=== PATIENT | female | born 2000 | race Caucasian/White ===

== ENCOUNTER 2020-12-20 22:59 | Emergency (ER) | payer BC, OTHER ==
[2020-12-20 23:07] VITALS: TEMP 98.8
[2020-12-20] MEDS ORDERED: SODIUM CHLORIDE 0.9% 1,000 ML IV STA (23:17)
--- NOTE | 2020-12-20 23:28 | ED ---
Seizure HPI - General Chief Complaint: Seizure Stated Complaint: Possible seizure Time Seen by Provider: 12/20/20 23:10 Source: patient, family, RN notes reviewed Mode of arrival: ambulatory Limitations: no limitations - History of Present Illness Initial Comments: Patient is a 20-year-old female that presents to emergency department after stating that she fainted while sitting in her car. She did note that she was smoking marijuana in her car at the time. She noted that she got a sharp left- sided abdominal pain that caused her to have sweats. She noted that she took her head back and fainted for a few seconds. She denied any postictal state. Boyfriend was concerned and brought her to emergency room to get evaluated. She was in no apparent distress or pain while sitting up in bed during the exam interview. She denied any pain or discomfort. She denied any nausea vomiting diarrhea constipation fever fatigue chills headache chest pain short of breath - Related Data Home Medications Medication Instructions Recorded Confirmed Escitalopram [Lexapro] 20 mg PO HS 12/21/20 12/21/20 Estarylla 0.25-35 1 tab PO HS 12/21/20 12/21/20 Pantoprazole [Protonix] 40 mg PO DAILY PRN 12/21/20 12/21/20 Allergies Allergy/AdvReac Type Severity Reaction Status Date / Time No Known Allergies Allergy Verified 12/21/20 00:22 Review of Systems ROS Statement: Those systems with pertinent positive or pertinent negative responses have been documented in the HPI. ROS Other: All systems not noted in ROS Statement are negative. Past Medical History Past Medical History: No Reported History History of Any Multi-Drug Resistant Organisms: None Reported Past Surgical History: No Surgical Hx Reported Past Psychological History: No Psychological Hx Reported Smoking Status: Never smoker Past Alcohol Use History: None Reported Past Drug Use History: Marijuana General Exam Limitations: no limitations General appearance: alert, in no apparent distress, obese Head exam: Present: atraumatic, normocephalic, normal inspection Eye exam: Present: normal appearance, PERRL, EOMI. Absent: scleral icterus, conjunctival injection, periorbital swelling Neck exam: Present: normal inspection Respiratory exam: Present: normal lung sounds bilaterally. Absent: respiratory distress, wheezes, rales, rhonchi, stridor Cardiovascular Exam: Present: regular rate, normal rhythm, normal heart sounds. Absent: systolic murmur, diastolic murmur, rubs, gallop, clicks GI/Abdominal exam: Present: soft, normal bowel sounds. Absent: distended, tenderness, guarding, rebound, rigid Extremities exam: Present: normal inspection, full ROM, normal capillary refill. Absent: tenderness, pedal edema, joint swelling, calf tenderness Neurological exam: Present: alert, oriented X3, CN II-XII intact Psychiatric exam: Present: normal affect, normal mood Skin exam: Present: warm, dry, intact, normal color. Absent: rash Course Vital Signs 12/20/20 23:01 Temperature 98.8 F Pulse Rate 105 H Respiratory 18 Rate Blood Pressure 124/82 O2 Sat by Pulse 97 Oximetry Medical Decision Making - Medical Decision Making 20-year-old female that fainted while sitting her car after smoking marijuana. EKG, labs, 1 L normal saline ordered. Patient declined the need for any pain medication or nausea medication this time. Vital signs stable, patient is tachycardic at 105 bpm Labs unremarkable, CT and chest x-ray showed no acute processes. Case discussed with Dr. Rod, patient discharge home with follow-up to primary care and seizure specialist. - Lab Data Result diagrams: 12/20/20 23:33 12/20/20 23:33 Lab Results 12/20/20 12/20/20 12/20/20 Range/Units 23:33 23:33 23:33 WBC 10.5 (3.8-10.6) k/uL RBC 4.51 (3.80-5.40) m/uL Hgb 14.2 (11.4-16.0) gm/dL Hct 40.9 (34.0-46.0) % MCV 90.8 (80.0-100.0) fL MCH 31.4 (25.0-35.0) pg MCHC 34.6 (31.0-37.0) g/dL RDW 12.4 (11.5-15.5) % Plt Count 295 (150-450) k/uL MPV 7.3 Neutrophils % 49 % Lymphocytes % 42 % Monocytes % 5 % Eosinophils % 3 % Basophils % 0 % Neutrophils # 5.1 (1.3-7.7) k/uL Lymphocytes # 4.4 (1.0-4.8) k/uL Monocytes # 0.5 (0-1.0) k/uL Eosinophils # 0.3 (0-0.7) k/uL Basophils # 0.0 (0-0.2) k/uL Sodium (137-145) mmol/L Potassium (3.5-5.1) mmol/L Chloride (98-107) mmol/L Carbon Dioxide (22-30) mmol/L Anion Gap mmol/L BUN (7-17) mg/dL Creatinine (0.52-1.04) mg/dL Est GFR (CKD-EPI)AfAm (>60 ml/min/1.73 sqM) Est GFR (CKD-EPI)NonAf (>60 ml/min/1.73 sqM) Glucose (74-99) mg/dL Calcium (8.4-10.2) mg/dL Magnesium (1.6-2.3) mg/dL Total Bilirubin (0.2-1.3) mg/dL AST (14-36) U/L ALT (4-34) U/L Alkaline Phosphatase (38-126) U/L Creatine Kinase (30-135) U/L Total Protein (6.3-8.2) g/dL Albumin (3.5-5.0) g/dL Urine Color Yellow Urine Appearance Cloudy H (Clear) Urine pH 6.0 (5.0-8.0) Ur Specific [place] 1.018 (1.001-1.035) Urine Protein Negative (Negative) Urine Glucose (UA) Negative (Negative) Urine Ketones Negative (Negative) Urine Blood Negative (Negative) Urine Nitrite Negative (Negative) Urine Bilirubin Negative (Negative) Urine Urobilinogen <2.0 (<2.0) mg/dL Ur Leukocyte Esterase Negative (Negative) Urine RBC 1 (0-5) /hpf Urine WBC 1 (0-5) /hpf Ur Squamous Epith Cells 4 (0-4) /hpf Urine Bacteria Occasional H (None) /hpf Urine Mucus Rare H (None) /hpf Urine HCG, Qual Not Detected (Not Detectd) 12/20/20 12/20/20 Range/Units 23:33 23:33 WBC (3.8-10.6) k/uL RBC (3.80-5.40) m/uL Hgb (11.4-16.0) gm/dL Hct (34.0-46.0) % MCV (80.0-100.0) fL MCH (25.0-35.0) pg MCHC (31.0-37.0) g/dL RDW (11.5-15.5) % Plt Count (150-450) k/uL MPV Neutrophils % % Lymphocytes % % Monocytes % % Eosinophils % % Basophils % % Neutrophils # (1.3-7.7) k/uL Lymphocytes # (1.0-4.8) k/uL Monocytes # (0-1.0) k/uL Eosinophils # (0-0.7) k/uL Basophils # (0-0.2) k/uL Sodium 138 (137-145) mmol/L Potassium 4.1 (3.5-5.1) mmol/L Chloride 104 (98-107) mmol/L Carbon Dioxide 26 (22-30) mmol/L Anion Gap 8 mmol/L BUN 10 (7-17) mg/dL Creatinine 0.65 (0.52-1.04) mg/dL Est GFR (CKD-EPI)AfAm >90 (>60 ml/min/1.73 sqM) Est GFR (CKD-EPI)NonAf >90 (>60 ml/min/1.73 sqM) Glucose 95 (74-99) mg/dL Calcium 9.5 (8.4-10.2) mg/dL Magnesium 2.0 (1.6-2.3) mg/dL Total Bilirubin 0.2 (0.2-1.3) mg/dL AST 33 (14-36) U/L ALT 44 H (4-34) U/L Alkaline Phosphatase 63 (38-126) U/L Creatine Kinase 241 H (30-135) U/L Total Protein 7.4 (6.3-8.2) g/dL Albumin 4.6 (3.5-5.0) g/dL Urine Color Urine Appearance (Clear) Urine pH (5.0-8.0) Ur Specific [place] (1.001-1.035) Urine Protein (Negative) Urine Glucose (UA) (Negative) Urine Ketones (Negative) Urine Blood (Negative) Urine Nitrite (Negative) Urine Bilirubin (Negative) Urine Urobilinogen (<2.0) mg/dL Ur Leukocyte Esterase (Negative) Urine RBC (0-5) /hpf Urine WBC (0-5) /hpf Ur Squamous Epith Cells (0-4) /hpf Urine Bacteria (None) /hpf Urine Mucus (None) /hpf Urine HCG, Qual (Not Detectd) - EKG Data -: EKG Interpreted by Me EKG shows normal: sinus rhythm Rate: normal EKG Comments: Ventricular rate 76 bpm, IL interval 194 ms, QRS duration 96 ms, QT/QTC 392/441 ms, PRT axes 57/84/49. Normal sinus rhythm, normal ECG. - Radiology Data Radiology results: report reviewed, image reviewed CT of the brain: No acute hemorrhage, hydrocephalus, or mass effect. Chest x-ray: No acute cardiopulmonary process. Disposition Clinical Impression: New onset seizure, Fainting Disposition: HOME SELF-CARE Instructions (If sedation given, give patient instructions): Seizure/Epilepsy Discharge Instructions & Follow-Up Additional Instructions: Please return to the Emergency Department if symptoms worsen or any other concerns. Avoid marijuana use as it could cause complications. Follow-up primary care in 3-5 days. Follow-up with seizure specialist at her convenience. Is patient prescribed a controlled substance at d/c from ED?: No Referrals: Ethel Zamudio DO [Primary Care Provider] - 1-2 days Time of Disposition: 01:07
[2020-12-20 23:42] LABS: Basophils % (A) 0 %; Eosinophils # (A) 0.3 k/uL (0-0.7); Eosinophils % (A) 3 %; HCT 40.9 % (34.0-46.0); HGB 14.2 gm/dL (11.4-16.0); Lymphocytes # (A) 4.4 k/uL (1.0-4.8); Lymphocytes % (A) 42 %; MCH 31.4 pg (25.0-35.0); MCHC 34.6 g/dL (31.0-37.0); MCV 90.8 fL (80.0-100.0); Mean Platelet Volume 7.3; Monocytes # (A) 0.5 k/uL (0-1.0); Monocytes % (A) 5 %; Neutrophils # (A) 5.1 k/uL (1.3-7.7); Neutrophils % (A) 49 %; Platelet Count 295 k/uL (150-450); RBC 4.51 m/uL (3.80-5.40); RDW 12.4 % (11.5-15.5); WBC 10.5 k/uL (3.8-10.6)
[2020-12-20 23:51] LABS: ALT 44 U/L (4-34); AST 33 U/L (14-36); African American GFR (CKD) >90 (>60 ml/min/1.73 sqM); Albumin 4.6 g/dL (3.5-5.0); Alkaline Phosphatase 63 U/L (38-126); Anion Gap 8 mmol/L; Blood Urea Nitrogen 10 mg/dL (7-17); Calcium 9.5 mg/dL (8.4-10.2); Carbon Dioxide 26 mmol/L (22-30); Chloride 104 mmol/L (98-107); Creatine Kinase 241 U/L (30-135); Glucose 95 mg/dL (74-99); Non-African American GFR(CKD) >90 (>60 ml/min/1.73 sqM); Potassium 4.1 mmol/L (3.5-5.1); Sodium 138 mmol/L (137-145); Total Bilirubin 0.2 mg/dL (0.2-1.3); Total Protein 7.4 g/dL (6.3-8.2)
[2020-12-21 00:05] LABS: Appearance,Urine Cloudy (Clear); Bacteria,Urine Occasional /hpf; Bilirubin,Urine Negative (Negative); Blood,Urine Negative (Negative); Color,Urine Yellow; Glucose,Urine (UA) Negative (Negative); Ketones,Urine Negative (Negative); Leukocyte Esterase,Urine Negative (Negative); Mucus,Urine Rare /hpf; Nitrite,Urine Negative (Negative); Protein,Urine Negative (Negative); RBC,Urine 1 /hpf (0-5); Specific Gravity,Urine 1.018 (1.001-1.035); Squamous Epithelial Cell,Urine 4 /hpf (0-4); Urobilinogen,Urine <2.0 mg/dL (<2.0); WBC,Urine 1 /hpf (0-5)
--- NOTE | 2020-12-21 00:52 | CT ---
EXAM: CT Head Without Intravenous Contrast CLINICAL HISTORY: ITS.REASON CT Reason: Fainting episode TECHNIQUE: Axial computed tomography images of the head/brain without intravenous contrast. CTDI is 49.1 mGy and DLP is 1121.4 mGy-cm. This CT exam was performed using one or more of the following dose reduction techniques: automated exposure control, adjustment of the mA and/or kV according to patient size, and/or use of iterative reconstruction technique. COMPARISON: No relevant prior studies available. FINDINGS: Brain: No hemorrhage or mass effect. Ventricles: No hydrocephalus. Bones/joints: Unremarkable. Soft tissues: Unremarkable. Sinuses: Unremarkable. Mastoid air cells: Clear. IMPRESSION: No acute hemorrhage, hydrocephalus, or mass effect.
--- NOTE | 2020-12-21 00:57 | XR ---
EXAM: XR Chest, 2 Views CLINICAL HISTORY: ITS.REASON XR Reason: Fainting episode TECHNIQUE: Frontal and lateral views of the chest. COMPARISON: No relevant prior studies available. FINDINGS: Lungs: No consolidation or mass. Pleural space: No effusion. Heart: No cardiomegaly. Bones/joints: No acute findings. IMPRESSION: No acute cardiopulmonary process.
[2020-12-21 01:11] VITALS: BP 127/79; PULSE 82; RESP 16
== END 2020-12-21 01:15 | disposition home or self-care (01) ==
LOC: EC 22:59
DX: R56.9 Unspecified convulsions (principal); R55 Syncope and collapse; R10.9 Unspecified abdominal pain; F12.90 Cannabis use, unspecified, uncomplicated; Z79.899 Other long term (current) drug therapy
CPT/HCPCS: 36415; 70450; 71046; 80053; 81001; 81025; 82550; 83735; 85025; 93005; 96360; 99285

== ENCOUNTER 2024-09-21 07:48 | Inpatient (IN) | payer BC ==
[~2024-09-21 07:48] MED LIST: IBUPROFEN 800 MG TAB PO SCH
[2024-09-21] MEDS ORDERED: TERBUTALINE 1 MG/ML VIAL SQ PRN (08:37)
[2024-09-21] MEDS ORDERED: TRANEXAMIC 1,000 MG/100ML-NACL 1,000 MG in EMPTY BAG 1 BAG IV PRN (08:37)
[2024-09-21] MEDS ORDERED: METHYLERGONOVINE 0.2 MG/ML 1 ML AMP IM PRN (08:37)
[2024-09-21] MEDS ORDERED: OXYTOCIN 10 UNIT/ML 1 ML VIAL IM PRN (08:37)
[2024-09-21] MEDS ORDERED: LIDOCAINE 0.5% (PF) 5 MG/ML (50 ML SDV) SQ PRN (08:37)
[2024-09-21] MEDS ORDERED: miSOPROStoL 200 MCG TAB PO PRN (08:37)
[2024-09-21] MEDS ORDERED: CARBOPROST TROMETHAMINE 250 MCG/ML 1 ML AMP IM PRN ×2 (08:37→15:16)
[2024-09-21] MEDS ORDERED: miSOPROStoL 200 MCG TAB RECTAL PRN (08:37)
[2024-09-21] MEDS ORDERED: OXYTOCIN 30 UNITS/500 ML NS 30 UNIT in SALINE 1 500ML.BAG IV SCH (08:45)
[2024-09-21] MEDS: LACTATED RINGERS 1,000 ML IV SCH (08:55)
[2024-09-21 09:09] LABS: Basophils % (A) 0 %; Eosinophils # (A) 0.1 k/uL (0-0.7); Eosinophils % (A) 1 %; HCT 38.5 % (34.0-46.0); HGB 12.7 gm/dL (11.4-16.0); Lymphocytes # (A) 2.2 k/uL (1.0-4.8); Lymphocytes % (A) 18 %; MCH 29.9 pg (25.0-35.0); MCHC 32.9 g/dL (31.0-37.0); MCV 90.8 fL (80.0-100.0); Monocytes # (A) 0.4 k/uL (0-1.0); Monocytes % (A) 4 %; Neutrophils # (A) 9.3 k/uL (1.3-7.7); Neutrophils % (A) 76 %; Platelet Count 268 k/uL (150-450); RBC 4.24 m/uL (3.80-5.40); RDW 14.4 % (11.5-15.5); WBC 12.2 k/uL (3.8-10.6)
[2024-09-21 09:20] LABS: ALT 19 U/L (4-34); AST 20 U/L (14-36); African American GFR (CKD) >90 (>60 ml/min/1.73 sqM); Blood Urea Nitrogen 10 mg/dL (7-17); INR 0.8 (<1.2); LDH 236 U/L (120-246); Non-African American GFR(CKD) >90 (>60 ml/min/1.73 sqM); Partial Thromboplastin Time 22.3 sec (22.0-30.0); Prothrombin Time 9.3 sec (10.0-12.5); Uric Acid 5.8 mg/dL (3.7-7.4)
[2024-09-21 09:20] LABS: Appearance,Urine Clear (Clear); Bilirubin,Urine Negative (Negative); Blood,Urine Moderate (Negative); Color,Urine Yellow; Glucose,Urine (UA) Negative (Negative); Ketones,Urine Negative (Negative); Leukocyte Esterase,Urine Trace (Negative); Mucus,Urine Rare /hpf; Nitrite,Urine Negative (Negative); PH, Urine 5.5 (5.0-8.0); Protein,Urine 1+ (Negative); RBC,Urine 7 /hpf (0-5); Specific Gravity,Urine 1.027 (1.001-1.035); Squamous Epithelial Cell,Urine 6 /hpf (0-4); Urobilinogen,Urine <2.0 mg/dL (<2.0); WBC,Urine 3 /hpf (0-5)
[2024-09-21] MEDS ORDERED: fentaNYL (PF) 50 MCG/ML 5 ML AMP ONE (09:38)
[2024-09-21] MEDS ORDERED: SODIUM CHLORIDE 0.9% 250 ML BAG ONE (09:38)
[2024-09-21] MEDS ORDERED: ROPIVACAINE 5 MG/ML 30 ML VIAL ONE (09:38)
[2024-09-21 09:56] LABS: Creatinine,Urine Random 233.3 mg/dL
[2024-09-21 10:01] LABS: Protein/Creatinine Ratio,Urine 0.077
[2024-09-21 10:03] VITALS: RESP 16
[2024-09-21] MEDS: OXYTOCIN 30 UNITS/500 ML NS 30 UNIT in SALINE 1 500ML.BAG IV SCH (12:30)
[2024-09-21] MEDS: CITRIC ACID-SODIUM CITRATE 15 ML CUP PO ONE (15:15)
[2024-09-21] MEDS ORDERED: LIDOCAINE HCL/PF 20 MG/ML 10 ML AMP ONE (15:22)
[2024-09-21] MEDS ORDERED: ONDANSETRON 4 MG/2 ML VIAL ONE (15:22)
[2024-09-21] MEDS ORDERED: OXYTOCIN 10 UNIT/ML 1 ML VIAL ONE (15:22)
[2024-09-21] MEDS ORDERED: MORPHINE SULFATE (PF) 0.3 MG/0.3 ML SYR ONE (15:22)
[2024-09-21] MEDS ORDERED: fentaNYL (PF) 50 MCG/ML 2 ML AMP ONE (15:22)
[2024-09-21] MEDS ORDERED: SIMETHICONE 80 MG CHEWABLE PO PRN (16:14)
[2024-09-21] MEDS ORDERED: diphenhydrAMINE 50 MG/ML 1 ML VIAL IVP PRN ×2 (16:14)
[2024-09-21] MEDS ORDERED: ONDANSETRON 4 MG/2 ML VIAL IVP PRN (16:14)
[2024-09-21] MEDS ORDERED: METOCLOPRAMIDE 5 MG/ML 2 ML VIAL IVP PRN (16:14)
[2024-09-21] MEDS ORDERED: NALOXONE 0.4 MG/ML 1 ML VIAL IV PRN (16:14)
[2024-09-21] MEDS ORDERED: diphenhydrAMINE 50 MG CAP PO PRN (16:14)
[2024-09-21] MEDS ORDERED: ZOLPIDEM 5 MG TAB PO PRN (16:14)
[2024-09-21] MEDS ORDERED: diphenhydrAMINE 25 MG CAP PO PRN (16:14)
--- NOTE | 2024-09-21 16:19 | P.OP ---
Date of Procedure: 09/21/24 Preoperative Diagnosis: IUP at 39-0/7 weeks, spontaneous rupture of membranes, reassuring heart tone Postoperative Diagnosis: Same Procedure(s) Performed: Primary low-transverse section Anesthesia: epidural Surgeon: Fabiola Dsouza Supervisor Beet End #1: Osbaldo Martines Estimated Blood Loss (ml): 636 IV fluids (ml): 600 Urine output (ml): 100 Pathology: other (Placenta) Condition: stable Disposition: observation Indications for Procedure: Nonreassuring heart tones, category 2, patient and partner are counseled on heart tones and need for primary . Multiple questions were an swered patient states understanding anesthesia in room to operating suite Operative Findings: Viable male infant delivered at 1534, weight of 5 pounds 12 ounces, Apgars of 8 and 9 at 1 and 5 minutes respectively. Nuchal cord is noted to be looped 2-3 times around the arm, clear fluid, occiput posterior presentation Description of Procedure: The patient was prepped and draped in the usual fashion after general anesthesia was found to be adequate by the anesthesia department. A Pfannenstiel incision was made and extended of the abdominal cavity without difficulty. The bladder peritoneum was elevated and incised and reflected distally. A 2 cm incision was made in the transverse plane of the lower uterine segment to enter the uterus at which time clear fluid was noted. The incision was extended in both directions using the bandage scissors. The head was encountered within the field and delivered up and through the incision where the nose and mouth were thoroughly suctioned. Remainder of the infant was delivered onto the surgical field where the cord was doubly clamped, cut, and the was passed for resuscitative measures with weight and Apgars as noted above. A segment of cord was then doubly clamped, cut, and set aside should cord gases become necessary. The placenta was delivered manually, intact, and was grossly normal with a grossly normal three-vessel cord. The uterus was exteriorized and the interior cavity of the uterus swept of any remaining placental and membranous fragments with a laparotomy sponge. The margins of the incision were grasped with Allis clamps and the incision closed in 2 layers. First layer was a running locking layer of 0 Vicryl from margin to margin followed by a second layer of imbricating 0 Vicryl from margin to margin. Bleeding was noted in the midportion of the hysterotomy incision therefore a [id number] suture was used to obtain hemostasis, any small points of bleeding were then made hemostatic with the Bovie. Once hemostasis was achieved, the posterior cul-de-sac was suctioned with a guard and the uterine and ovarian findings are as noted above. The uterus was replaced within the abdominal cavity and the gutters swept of any remaining blood fluid or clot. The incision was again reexamined and hemostasis was noted to be excellent. Any small point of bleeding were made hemostatic with the Bovie. Once hemostasis was achieved the parietal peritoneum was loosely reapproximated. The layer of muscles were examined and made hemostatic with the Bovie. Attention was then turned to the fascia which was closed with 2 running stitches of 0 Vicryl proceeding from the lateral margins to the midpoint. The subcutaneous tissues were irrigated, made hemostatic with the Bovie, and reapproximated with a running stitch of 30 Vicryl. The skin was reapproximated with 4-0 Vicryl. Estimated blood loss for the case was approximately 636 mL. All sponge instrument and needle counts are correct. There were no complications. The patient tolerated the procedure well and proceeded to the recovery room in stable condition. Both mother and are resting comfortably in recovery.
--- NOTE | 2024-09-21 16:21 | P.HPOB ---
History of Present Illness H&P Date: 09/21/24 Chief Complaint: IUP at 39 weeks, spontaneous rupture of membranes, labor This is a 23-year-old 1 para 0 at 39-0/7 weeks that presents to labor and delivery with complaints of rupture of membranes around 5 AM. Patient states contractions began soon afterwards. Patient presents to OB triage grossly ruptured. Initial blood pressures are elevated 140s to 150s over 90s. Patient is significantly uncomfortable. Patient has been receiving routine care which has been uncomplicated. On blood work this patient has a blood type of A-, rubella immune, hepatitis B surface engine negative, HIV negative, RPR is nonreactive, group beta strep cultures negative Review of Systems Constitutional: Denies chills, Denies fatigue, Denies fever Ears, nose, mouth and throat: Denies headache Cardiovascular: Reports leg edema Respiratory: Denies dyspnea Gastrointestinal: Denies nausea, Denies vomiting Genitourinary: Reports Past Medical History Past Medical History: No Reported History History of Any Multi-Drug Resistant Organisms: None Reported Past Surgical History: No Surgical Hx Reported Smoking Status: Never smoker - Past Family History Mother Family Medical History: No Reported History Medications and Allergies Home Medications Medication Instructions Recorded Confirmed Type Cetirizine HCl [Zyrtec] 1 tab PO ONCE 08/09/24 09/21/24 History Vit No.179/Iron/Folic 1 tab PO ONCE 08/09/24 09/21/24 History [ Tablet] Venlafaxine HCl ER [Effexor XR] 1 tab PO ONCE 08/09/24 09/21/24 History Allergies Allergy/AdvReac Type Severity Reaction Status Date / Time No Known Allergies Allergy Verified 09/21/24 08:20 Exam Osteopathic Statement: *. No significant issues noted on an osteopathic structural exam other than those noted in the History and Physical/Consult. Intake and Output 09/20/24 09/21/24 09/21/24 22:59 06:59 14:59 Other: Weight 117.934 kg Targeted physical exam is performed this date General Is well-nourished well- developed female in no acute distress, breathing is nonlabored, heart has a regular rate and rhythm, abdomen is gravid, on cervical exam she is 5/100/-2 station, amniotic fluid is appreciated after check, grossly ruptured. heart tones are noted to be category 1 and she is chica every 3 to 5 minutes. Results Result Diagrams: 09/21/24 08:50 09/21/24 08:50 Assessment and Plan (1) Spontaneous rupture of membranes Current Visit: Yes Status: Acute Code(s): VVO2454 - SNOMED Code(s): 530128691 (2) Active labor Current Visit: Yes Status: Acute Code(s): AII1886 - SNOMED Code(s): 491895863 (3) Term Current Visit: Yes Status: Acute Code(s): Z34.90 - ENCNTR FOR SUPRVSN OF NORMAL , UNSP, UNSP TRIMESTER SNOMED Code(s): 01122676 Plan: 23-year-old 1 para 0 at 39-0/7 weeks presents with confirmed spontaneous rupture of membranes. Patient is noted to be in active labor. Patient is admitted to labor and delivery. Options for analgesia are discussed including Nubain, epidural. She does desire epidural when appropriate. Anesthesia will be notified. Clear liquids as tolerated Continuous monitoring.
[2024-09-21] MEDS: ACETAMINOPHEN IV (For NPO) 1,000 MG in EMPTY BAG 1 BAG IVPB ONE (17:04)
[2024-09-21] MEDS: IBUPROFEN IV 800 MG in SODIUM CHLORIDE 0.9% 250 ML IV ONE (20:18)
[2024-09-21] MEDS: SENNOSIDES-DOCUSATE SODIUM 1 EACH TAB PO SCH (21:16)
[2024-09-21] MEDS: Rhogam IMMUNE GLOBULIN 1,500 UNIT/1 ML IM ONE (22:07)
[2024-09-22] MEDS: ACETAMINOPHEN TAB 500 MG TAB PO SCH (00:27)
[2024-09-22] MEDS: IBUPROFEN 800 MG TAB PO SCH (05:23)
[2024-09-22] MEDS: LACTATED RINGERS 1,000 ML IV SCH (05:46)
[2024-09-22 07:30] LABS: Basophils % (A) 0 %; Eosinophils # (A) 0.1 k/uL (0-0.7); Eosinophils % (A) 1 %; HCT 31.8 % (34.0-46.0); HGB 10.2 gm/dL (11.4-16.0); Lymphocytes # (A) 2.3 k/uL (1.0-4.8); Lymphocytes % (A) 21 %; MCH 30.2 pg (25.0-35.0); MCHC 32.2 g/dL (31.0-37.0); MCV 93.5 fL (80.0-100.0); Monocytes # (A) 0.5 k/uL (0-1.0); Monocytes % (A) 5 %; Neutrophils # (A) 7.8 k/uL (1.3-7.7); Neutrophils % (A) 71 %; Platelet Count 209 k/uL (150-450); RDW 14.1 % (11.5-15.5)
--- NOTE | 2024-09-22 08:10 | P.PN ---
Progress Note - Text Progress Note Date: 09/22/24 (912) Anesthesia Postop day 1 Subjective: Status Post section with Duramorph. Patient seen and examined. Doing well without complaint. VAS 3 out of 10. No nausea vomiting. Mild pruritus. Denies fever. Gross lower extremity strength intact. Without apparent anesthetic complications. Objective: Vital signs reviewed Heart: Regular Rate Lungs: Good chest excursion Abdomen: Appears nondistended Assessment: Status post section with Duramorph postop day 1 Plan: 1. Continue current care with your medical management. Anticipated end to the duration of the Duramorph around surgery time today. You may see increased pain needs around this time. 2. This note was dictated using [employer] software. Please be advised there is a potential for misspellings or errors in [place] aide.
--- NOTE | 2024-09-22 08:23 | P.PNOBGPC ---
Subjective - Subjective Principal diagnosis: Postop day 1, primary nonreassuring heart tones Interval history: Patient is doing well this morning she is ambulating and voiding without difficulty. She is tolerating a regular diet without nausea or vomiting. She states her pain is controlled with oral pain medication. Her lochia is moderate. She is bottlefeeding. Patient reports: Reports appetite normal, Reports voiding normally, Reports pain well controlled, Reports ambulating normally : doing well, bottle feeding Objective - Vital Signs Latest vital signs: Vital Signs Temp Pulse Resp BP Pulse Ox 09/22/24 00:00 97.7 F 67 16 124/83 98 09/21/24 20:00 98.5 F 70 16 118/76 98 09/21/24 18:07 97.4 F L 71 16 138/65 99 09/21/24 17:52 77 16 145/67 99 09/21/24 17:37 76 16 149/82 99 09/21/24 17:22 75 16 125/71 100 09/21/24 17:07 76 16 123/69 100 09/21/24 16:52 75 16 131/70 100 09/21/24 16:37 68 16 137/77 100 09/21/24 16:22 75 16 143/53 100 09/21/24 16:07 97.7 F 86 16 134/70 100 09/21/24 09:00 97.8 F 71 16 141/98 99 09/21/24 08:37 97.8 F 71 16 141/98 99 Intake and Output 09/21/24 09/22/24 09/22/24 22:59 06:59 14:59 Intake Total 1200 Output Total 921 1900 Balance 279 -1900 Intake: IV 600 Oral 600 Output: Urine 110 1900 Uretheral (Pringle) 500 Emesis 0 Output, Quantitative 811 Blood Loss Other: # Voids 1 - Exam Extremities: Present: normal, edema Abdomen: Present: normal appearance, soft Incision: Present: normal, dry, intact, dressed Uterus: Present: normal, firm - Labs Labs: Abnormal Lab Results - Last 24 Hours (Table) 09/21/24 09/21/24 09/21/24 Range/Units 08:00 08:50 08:50 WBC 12.2 H (3.8-10.6) k/uL RBC (3.80-5.40) m/uL Hgb (11.4-16.0) gm/dL Hct (34.0-46.0) % Neutrophils # 9.3 H (1.3-7.7) k/uL PT 9.3 L (10.0-12.5) sec Urine Protein 1+ H (Negative) Urine Blood Moderate H (Negative) Ur Leukocyte Esterase Trace H (Negative) Urine RBC 7 H (0-5) /hpf Ur Squamous Epith Cells 6 H (0-4) /hpf Urine Mucus Rare H (None) /hpf 09/22/24 Range/Units 07:10 WBC 11.0 H (3.8-10.6) k/uL RBC 3.40 L (3.80-5.40) m/uL Hgb 10.2 L (11.4-16.0) gm/dL Hct 31.8 L (34.0-46.0) % Neutrophils # 7.8 H (1.3-7.7) k/uL PT (10.0-12.5) sec Urine Protein (Negative) Urine Blood (Negative) Ur Leukocyte Esterase (Negative) Urine RBC (0-5) /hpf Ur Squamous Epith Cells (0-4) /hpf Urine Mucus (None) /hpf Assessment and Plan (1) Spontaneous rupture of membranes Current Visit: Yes Status: Acute Code(s): NWS8211 - SNOMED Code(s): 671049548 (2) Active labor Current Visit: Yes Status: Acute Code(s): QSW2674 - SNOMED Code(s): 706960901 (3) Term Current Visit: Yes Status: Acute Code(s): Z34.90 - ENCNTR FOR SUPRVSN OF NORMAL , UNSP, UNSP TRIMESTER SNOMED Code(s): 12049658 (4) Non-reassuring heart tones complicating , antepartum Current Visit: Yes Status: Acute Code(s): O36.8390 - MATERN CARE FOR ABNLT FETL HRT RATE OR RHYM, UNSP TRI, UNSP SNOMED Code(s): 343318939 (5) Status post section Current Visit: Yes Status: Acute Code(s): Z98.891 - HISTORY OF UTERINE SCAR FROM PREVIOUS SURGERY SNOMED Code(s): 631934237 Plan: Patient is doing well postoperatively. Will discontinue abdominal dressing around noon today. Advance diet to regular, encourage increased ambulation. Continue postoperative care.
[2024-09-22] MEDS ORDERED: IBUPROFEN 800 MG TAB PO SCH (16:00)
[2024-09-22] MEDS: PRENATAL VIT-IRON-FOLIC ACID 1 EACH TABLET PO SCH (17:48)
[2024-09-22] MEDS: BACITRACIN OINT 1 EACH PACKET TOPICAL SCH (23:19)
[2024-09-23 10:03] VITALS: BP 140/88; PULSE 86; TEMP 97
--- NOTE | 2024-09-23 10:16 | P.DS ---
Providers Date of admission: 09/21/24 08:20 Expected date of discharge: 09/23/24 Attending physician: Fabiola Dsouza Primary care physician: Stated None - Discharge Diagnosis(es) (1) Spontaneous rupture of membranes Current Visit: Yes Status: Acute (2) Active labor Current Visit: Yes Status: Acute (3) Term Current Visit: Yes Status: Acute (4) Non-reassuring heart tones complicating , antepartum Current Visit: Yes Status: Acute (5) Status post section Current Visit: Yes Status: Acute Hospital Course: 23-year-old 1 now para 1 that presented to labor and delivery on 09/21 with complaints of spontaneous rupture of membranes and contractions. Patient had been receiving routine care which had been essentially uncomplicated. Patient was evaluated in OB triage deemed grossly ruptured and 5+ centimeters. Patient was admitted to labor and delivery. Patient did request epidural during the labor process. Epidural was placed without difficulty by the anesthesia department. Patient did progressed to complete with category 2 heart tones heart tones were noted to be in the 80s after 2 pushes therefore primary was called secondary to nonreassuring heart tones. Pitocin was turned off and heart tones returned to the 120s with moderate variability, category 1 in the operating room. Patient delivered a viable male infant at 1534, weight of 5 pounds 12 ounces, Apgars of 8 and 9 at 1 and 5 minutes respectively. For full details of the please see the dictated operative for. Patient has done well postoperatively. On this postoperative day #2 she is ambulating and voiding without difficulty. She is tolerating a regular diet without nausea or vomiting. She states her pain is well-controlled. She would like discharge home later today. Patient Condition at Discharge: Good Plan - Discharge Summary New Discharge Prescriptions: No Action Vit No.179/Iron/Folic [ Tablet] 1 tab PO ONCE Cetirizine HCl [Zyrtec] 1 tab PO ONCE Venlafaxine HCl ER [Effexor XR] 1 tab PO ONCE Discharge Medication List Cetirizine HCl [Zyrtec] 1 tab PO ONCE 08/09/24 [History] Vit No.179/Iron/Folic [ Tablet] 1 tab PO ONCE 08/09/24 [History] Venlafaxine HCl ER [Effexor XR] 1 tab PO ONCE 08/09/24 [History] Follow up Appointment(s)/Referral(s): Fabiola Dsouza DO [Doctor of Osteopathic Medicine] - 2 Weeks Patient Instructions/Handouts: (DC), (GEN) Activity/Diet/Wound Care/Special Instructions: No tub baths or intercourse until 6 weeks postoperatively. Patient is to call the office to make a routine postoperative visit in 2 weeks. [id number] ibuprofen 6 or milligrams or 3 tablets every 6 hours as needed for pain. Should she have any concerns prior to her postoperative visit she is urged to call the office. Incision care is discussed and questions were answered. Discharge Disposition: HOME SELF-CARE
== END 2024-09-23 13:40 | disposition home or self-care (01) | DRG 788 ==
LOC: FBPOP 07:48 → 4FBP 08:20
PROVIDERS: ADMIT Obstetrics & Gynecology Obstetrics; ATTEND Obstetrics & Gynecology Obstetrics
PROC: 10D00Z1 Extraction of Products of Conception, Low, Open Approach (ICD-10-PCS; principal; 2024-09-21 15:00)
DX: O76 Abnormality in fetal heart rate and rhythm complicating labor and delivery (principal); L29.9 Pruritus, unspecified; O69.81X0 Labor and delivery complicated by cord around neck, without compression, not applicable or unspecified; Z37.0 Single live birth; Z3A.39 39 weeks gestation of pregnancy; Z28.21 Immunization not carried out because of patient refusal
CPT/HCPCS: 59025; 81001; 82565; 82570; 83615; 84112; 84156; 84450; 84460; 84520; 84550; 85025; 85461; 85610; 85730; 86850; 86900; 86901; 88307; 99213